=== PATIENT | female | born 1995 | race Caucasian/White ===

== ENCOUNTER 2019-03-22 12:01 | Emergency (ER) | payer OTHER ==
[~2019-03-22] VITALS: Ht 170.2 cm; Wt 72.7 kg
[2019-03-22] MEDS ORDERED: DEPO150I12 IM (12:29)
[2019-03-22] MEDS ORDERED: AMPICILLIN SOD/SULBACTAM SOD 3 GM in D5W MINI-BAG PLUS 100 ML IV ONE (12:45)
[2019-03-22] MEDS ORDERED: NORCO, ANEXSIA 5/325MG TABLET (HYDROcodone/ACETAMINOPHEN) PO ONE (12:45)
--- NOTE | 2019-03-22 13:07 | REP ---
Clinical: Trauma. Dog bite. Technique: AP, lateral, bilateral oblique views of the left hand. Findings: Subtle soft tissue injury overlies the fifth digit. No subcutaneous emphysema or foreign body. The osseous structures and joint spaces are intact and without acute fracture or dislocation. Impression: Soft tissue injury. No acute fracture or dislocation. Electronically Signed by Harry Holliday MD 03/22/2019 12:58 P
[2019-03-22] MEDS ORDERED: NORC1TAB7 PO (14:44)
[2019-03-22] MEDS ORDERED: AUGM875T28 PO (14:44)
[2019-03-22 14:48] VITALS: BP 112/66
== END 2019-03-22 14:59 | disposition home or self-care (01) ==
LOC: EDSEX 12:01 → M ED 12:01 → EDBD 12:01 → M ED 14:59
DX: S61.451A Open bite of right hand, initial encounter (principal); S61.452A Open bite of left hand, initial encounter; W54.0XXA Bitten by dog, initial encounter; Y92.830 Public park as the place of occurrence of the external cause; Y93.89 Activity, other specified; Y99.8 Other external cause status

== ENCOUNTER → 2019-09-01 | Outpatient (CLI) | payer OTHER ==
[~2019-09-01] MED LIST: AUGM875T28 PO; DEPO150I12 IM; NORC1TAB7 PO
--- NOTE | 2019-09-03 14:15 | DEXA ---
AP SPINE L1 - L4 1.113 -0.7 -0.7 LT FEMUR TOTAL 0.885 -1.0 -1.0 LT NECK 0.896 -1.0 -1.1 RT FEMUR TOTAL 0.888 -1.0 -1.0 RT NECK 0.902 -1.0 -1.0 TOTAL BODY TOTAL OTHER COMMENTS: Normal bone densitometry of the spine. There is low bone density of the hips. FOLLOW-UP: Recommendation for the next bone density exam: 2 years. SUZIE
== END ==
LOC: M WHC 12:49
PROVIDERS: ATTEND Physician Assistant Medical
DX: Z02.89 Encounter for other administrative examinations (principal); M85.859 Other specified disorders of bone density and structure, unspecified thigh